=== PATIENT | male | born 1990 | race Caucasian/White ===

== ENCOUNTER → 2022-04-08 16:02 | Outpatient (CLI) | payer OTHER, SELFPAY ==
[2022-04-09 09:21] LABS: Liquefaction Semen YES (YES); PH Semen 9 (7-8); Sperm Count 9 x10^6/mL (20-150); Volume Semen 1 (1.0-5.0)
[2022-04-09 09:22] LABS: Sperm Motility 10% % Motile
[2022-04-09 09:24] LABS: Sperm Morphology 22 %ABNORM (0-30)
== END ==
PROVIDERS: Referring Provider Specialist; Visit Provider Specialist
DX: Z31.69 Encounter for other general counseling and advice on procreation (principal)
CPT/HCPCS: 89320